=== PATIENT | male | born 1970 | race Caucasian/White ===

== ENCOUNTER 2016-04-07 09:03 | Emergency (ER) ==
[2016-04-07] MEDS ORDERED: LIDOCAINE 1 % AMP 5 ML (SUTURES) SQ STA (09:07)
--- NOTE | 2016-04-07 09:10 | ED.PDOC ---
General ED Provider: Dr. CARMEN PAULA Chief Complaint: Abscess Stated Complaint: had a cyst for 10 months. Them over the last 2 -3 day area on the right lower quadrant started swelling and is very painful Time Seen by Physician: 09:30 Information Source: Patient Primary Care Provider: KHARI BUCHANAN Nursing and Triage Documentation Reviewed and Agree: Yes Skin Complaint Exam - Skin/Soft Tissue Complaint/Exam Onset/Duration: 2 days Symptoms Are: Still present Timing: Constant Initial Severity: Moderate Current Severity: Severe Location: Right lower quadrant Character: Reports: Redness, Swelling, Raised, Painful Aggravating: Reports: Touch Alleviating: Reports: None Associated Signs and Symptoms: Reports: Tenderness, Red streaks. Denies: Fever , Chills, Itching, Drainage, Bruising, Joint swelling Recent Exposure to Others w/Similar Symptoms: No Skin Findings: Present: Induration, Fluctuant mass, Skin lesion Joint Tenderness Present: No Differential Diagnoses: Abscess, Cellulitis, Lymphangitis Review of Systems - Review Of Systems Constitutional: Reports: No symptoms Eyes: Reports: No symptoms Ears, Nose, Mouth, Throat: Reports: No symptoms Respiratory: Reports: No symptoms Cardiac: Reports: No symptoms GI: Reports: No symptoms : Reports: No symptoms Musculoskeletal: Reports: No symptoms Skin: Reports: Lesions (right lower quadrant ) Neurological: Reports: No symptoms Endocrine: Reports: No symptoms Hematologic/Lymphatic: Reports: No symptoms All Other Systems: Reviewed and Negative Past Medical History - Past Medical History Endocrine: Reports: Dyslipidemia Cardiovascular: Reports: None Respiratory: Reports: None Hematological: Reports: None Gastrointestinal: Reports: PUD Genitourinary: Reports: Kidney stones Neuro/Psych: Reports: Migraine, Anxiety, Depression Musculoskeletal: Reports: None Cancer: Reports: None Other Pertinent Past Medical History: DIVERTICULITIS, Abdominal pain. - Surgical History General Surgical History: Reports: Cholecystectomy, Tonsillectomy - Family History Family History: Reports: Unknown - Social History Smoking Status: Current every day smoker Hx Substance Use: No Alcohol Screening: Occasionally Physical Exam - Physical Exam Appearance: Ill-appearing, No pain distress, Well-nourished Pain Distress: Moderate Respiratory: Airway patent, Breath sounds clear, Breath sounds equal, Respirations nonlabored Cardiovascular: RRR, Pulses normal, No rub, No murmur GI/: Soft, No masses, Bowel sounds normal, No Organomegaly, Tender (in area of absecess ) Musculoskeletal: Normal strength, ROM intact, No edema, No calf tenderness Skin: Warm, Dry Neurological: Sensation intact, Motor intact, Cranial nerves intact, Alert, Oriented Psychiatric: Affect appropriate, Mood appropriate Procedures - Incision and Drainage Site: right lower quadrant Instrument Used: 11 Blade I & D Procedure: Yes: Betadine Prep Lidocaine Used: Yes Type of Drainage: Present: Pus, Blood Irrigated: No Progress: Tolerated well. Critical Care Note - Critical Care Note Total Time (mins): 0 Course - Course Orders, Labs, Meds: Orders Category Date Time Status CULTURE WOUND [WOUND CULTURE] Stat LAB 04/07/16 09:40 Received Lidocaine HCl/Pf [Lidocaine 1 % Amp 5 ml (Sutures)] MEDS 04/07/16 09:07 Discontinued 5 ml SQ ONCE STA Sulfamethoxazole/Trimethoprim [Bactrim Ds 800/160 mg] MEDS 04/07/16 09:42 Discontinued 1 tab PO ONCE STA Medications Discontinued Medications Generic Name Dose Route Start Last Admin Trade Name Freq PRN Reason Stop Dose Admin Lidocaine HCl 5 ml 04/07/16 09:07 04/07/16 09:46 Lidocaine 1 % Amp 5 Ml (Sutures) SQ 04/07/16 09:08 5 ml ONCE STA Administration Trimethoprim/Sulfamethoxazole 1 tab 04/07/16 09:42 04/07/16 09:45 Bactrim Ds 800/160 Mg PO 04/07/16 09:43 1 tab ONCE STA Administration Vital Signs: Temp Pulse Resp BP Pulse Ox 04/07/16 09:07 98.3 F 94 H 20 135/86 95 Departure - Departure Time of Disposition: 09:43 Disposition: HOME SELF-CARE Discharge Problem: Abscess Instructions: Abscess (ED) Condition: Good Pt referred to PMD for follow-up: Yes Additional Instructions: use warm compress to the area twice a day. keep it clean take antibiotics as prescribed take Motrin as needed fro pain Prescriptions: Ibuprofen [Motrin] 600 mg PO Q6H PRN #30 tablet PRN Reason: Analgesia Sulfamethoxazole/Trimethoprim [Bactrim Ds Tablet] 1 each PO BID #20 tablet Allergies/Adverse Reactions: Allergies No Known Allergies Allergy (Verified 04/07/16 09:13) Home Medications: Ambulatory Orders Ibuprofen [Motrin] 600 mg PO Q6H PRN #30 tablet 04/07/16 Sulfamethoxazole/Trimethoprim [Bactrim Ds Tablet] 1 each PO BID #20 tablet 04/07 Disposition Discussed With: Patient
[2016-04-07 09:12] VITALS: BP 135/86; TEMP 98.3; BMI 29.7
[2016-04-07] MEDS ORDERED: BACTRIM DS 800/160 MG PO STA (09:42)
== END 2016-04-07 09:52 | disposition home or self-care (01) ==
LOC: ED 09:03
DX: L02.211 Cutaneous abscess of abdominal wall (principal); F17.210 Nicotine dependence, cigarettes, uncomplicated
CPT/HCPCS: 87070; 99282; 99283

== ENCOUNTER 2016-11-02 14:16 | Outpatient (CLI) ==
[2016-11-02 14:55] LABS: BASOPHILS # (AUTO) 0.1 K/uL (0-0.2); BASOPHILS % (AUTO) 0.7 % (0.0-3.0); EOSINOPHILS # (AUTO) 0.1 K/ul (0.0-0.7); EOSINOPHILS % (AUTO) 1.4 % (0.0-7.0); IMMATURE GRANULOCYTE % (AUTO) 0.5 % (0.0-5.0); LYMPHOCYTES # (AUTO) 3.3 K/uL (0.60-3.4); LYMPHOCYTES % (AUTO) 37.1 (10.0-50.0); MEAN CORPUSCULAR HEMOGLOBIN 31.9 pg (27.0-31.0); MEAN CORPUSCULAR HGB CONC 35.4 (31.8-35.4); MEAN CORPUSCULAR VOLUME 90.1 fl (80.0-94.0); MONOCYTES # (AUTO) 0.9 K/uL (0.4-2.0); MONOCYTES % (AUTO) 10.2 (0-10); NEUTROPHILS # (AUTO) 4.4 K/ul (2.0-6.9); NEUTROPHILS % (AUTO) 50.1; PLATELET COUNT 339 10^3/uL (140-440); RED BLOOD COUNT 5.33 10^6/ul (4.70-6.10); WHITE BLOOD COUNT 8.76 K/ul (4.2-10.2)
[2016-11-02 15:43] LABS: ALBUMIN 4.2 g/dL (3.4-5.0); ALBUMIN/GLOBULIN RATIO 1.05; BILIRUBIN,TOTAL 4.72 mg/dL (0.00-1.20); BUN/CREATININE RATIO 9.89; CALCIUM 10.2 mg/dL (8.2-10.2); CREATININE 0.91 mg/dL (0.60-1.10); POTASSIUM 3.8 mmol/L (3.5-5.1); TOTAL PROTEIN 8.2 g/dL (6.4-8.2)
[2016-11-02 16:36] LABS: ANION GAP 18.8
== END 2016-11-02 14:17 | disposition home or self-care (01) ==
LOC: LAB 14:16
PROVIDERS: ATTEND Nurse Practitioner Family
DX: F41.8 Other specified anxiety disorders (principal); G25.0 Essential tremor; E78.5 Hyperlipidemia, unspecified; Z79.899 Other long term (current) drug therapy
CPT/HCPCS: 36415; 80053; 80061; 82542; 84443; 85025

== ENCOUNTER 2017-10-12 16:52 | Outpatient (CLI) | payer OTHER ==
[2017-10-12] MEDS ORDERED: FLOMAX ONE (17:28)
[2017-10-12] MEDS ORDERED: TORADOL ONE (17:29)
[2017-10-12] MEDS ORDERED: TORADOL IM STA (17:30)
[2017-10-12] MEDS ORDERED: FLOMAX PO STA (17:30)
--- NOTE | 2017-10-12 17:30 | CT ---
EXAM: CT scan of the abdomen and pelvis without contrast HISTORY: Left flank pain, history of kidney stones TECHNIQUE: Helical imaging of the abdomen pelvis was performed without contrast. 3 mm thin axial im ages and coronal and sagittal reconstructions were provided for interpretation. FINDINGS: The patient has had previous cholecystectomy. The pancreas, adrenal glands and kidneys ap pear normal. The proximal ureters are normal size. The small and large bowel loops are normal calib er. There is no free air. Diverticula are seen within the descending colon and sigmoid colon withou t acute inflammation. The appendix appears normal. No retroperitoneal abnormalities are seen. The helical images obtained through the pelvis demonstrate a normal appearance of the rectum, urinary bladder. There is no free fluid seen within the pelvis. Lung bases are clear. No lytic or blastic lesions are seen within the osseous structures. IMPRESSION: There is no ureteral obstruction. There is no bowel obstruction or acute inflammatory change seen within the abdomen and pelvis. Diverticular disease of the descending colon and sigmoid colon without acute inflammation.
== END 2017-10-12 16:53 | disposition home or self-care (01) ==
LOC: RAD 16:52 → OPMED 16:53
PROVIDERS: ATTEND Internal Medicine Geriatric Medicine
DX: N20.0 Calculus of kidney (principal); R10.9 Unspecified abdominal pain
CPT/HCPCS: 74176; 96372

== ENCOUNTER 2018-03-04 21:08 | Emergency (ER) | payer OTHER ==
[2018-03-04 21:18] VITALS: BP 145/90; TEMP 98.7; BMI 28.0
--- NOTE | 2018-03-04 21:25 | ED.PDOC ---
General ED Provider: Dr. BERYL VILLEGAS-ER Chief Complaint: Respiratory Complaint Stated Complaint: my sinuses are draining and i am coughing Time Seen by Physician: 21:10 Mode of Arrival: Walk-In Information Source: Patient Exam Limitations: No limitations Primary Care Provider: CAROLYNN CELIS Nursing and Triage Documentation Reviewed and Agree: Yes Does patient meet sepsis criteria?: No System Inflammatory Response Syndrome: Not Applicable Sepsis Protocol: For patient's 13 years and over: Temp is 96.8 and below OR 101 and greater Pulse >90 BPM Resp >20/minute Acutely Altered Mental Status Are patient's symptoms suggestive of a new infection, such as: -Pneumonia -Skin, Soft Tissue -Endocarditis -UTI -Bone, Joint Infection -Implantable Device -Acute Abdominal Infection -Wound Infection -Meningitis -Blood Stream Catheter Infection -Unknown Respiratory Complaint Exam - Respiratory Complaint/Exam Onset/Duration: 2 days Symptoms Are: Still present Timing: Intermittent Initial Severity: Mild Current Severity: Moderate Location: Nose, Chest Character: Reports: Productive cough Aggravating: Reports: URI Alleviating: Reports: Spontaneous resolution Associated Signs and Symptoms: Reports: URI, Nasal congestion, Sinus discomfort History of Healthcare-Acquired Pneumonia: No Home Oxygen Use: No Recent Stress Test: No Recent Echo/LV Function: No Current Antibiotic Use: No Current Asthma Medication Use: No Respiratory Distress: None Inadequate Respiratory Effort: No Dysphagia Present: No Stridor Present: No JVD Present: No Accessory Muscle Use: No Retractions: Not Present Diminished Breath Sounds: No Sinus Tenderness: Maxillary Grunting Respirations: No Kussmaul Respirations: No Differential Diagnoses: Sinusitis, URI Review of Systems - Review Of Systems Constitutional: Reports: No symptoms Eyes: Reports: No symptoms Ears, Nose, Mouth, Throat: Reports: Nose discharge Respiratory: Reports: Cough Cardiac: Reports: No symptoms GI: Reports: No symptoms : Reports: No symptoms Musculoskeletal: Reports: No symptoms Skin: Reports: No symptoms Neurological: Reports: No symptoms Endocrine: Reports: No symptoms Hematologic/Lymphatic: Reports: No symptoms All Other Systems: Reviewed and Negative Past Medical History - Past Medical History Previously Healthy: No Endocrine: Reports: Dyslipidemia Cardiovascular: Reports: None Respiratory: Reports: None Hematological: Reports: None Gastrointestinal: Reports: PUD Genitourinary: Reports: Kidney stones Neuro/Psych: Reports: Migraine, Anxiety, Depression Musculoskeletal: Reports: None Cancer: Reports: None Other Pertinent Past Medical History: DIVERTICULITIS, Abdominal pain. - Surgical History General Surgical History: Reports: Cholecystectomy, Tonsillectomy - Family History Family History: Reports: Unknown - Social History Smoking Status: Current every day smoker, Heavy tobacco smoker Hx Substance Use: No Alcohol Screening: Occasionally - Immunizations Tetanus Shot up to Date: Yes Physical Exam - Physical Exam Appearance: Well-appearing, No pain distress, Well-nourished Eyes: JENS, EOMI, Conjunctiva clear ENT: Rhinorrhea Neck: Supple Respiratory: Rhonchi Cardiovascular: RRR, Pulses normal, No rub, No murmur GI/: Soft, Nontender, No masses, Bowel sounds normal, No Organomegaly Musculoskeletal: Normal strength, ROM intact, No edema, No calf tenderness Skin: Warm, Dry, Normal color Neurological: Sensation intact, Motor intact, Reflexes intact, Cranial nerves intact, Alert, Oriented Psychiatric: Affect appropriate Critical Care Note - Critical Care Note Total Time (mins): 0 Course - Course Orders, Labs, Meds: Orders Category Date Time Status FLU A/B MOLECULAR Stat LAB 03/04/18 21:21 Ordered Vital Signs: Temp Pulse Resp BP Pulse Ox 03/04/18 21:09 98.7 F 90 20 145/90 H 93 L Departure - Departure Time of Disposition: 21:25 Disposition: HOME SELF-CARE Discharge Problem: Bronchitis Sinusitis Qualifiers: Sinusitis location: other Chronicity: acute Recurrence: non-recurrent Qualified Code(s): J01.80 - Other acute sinusitis Instructions: Sinusitis (ED) Condition: Good Pt referred to PMD for follow-up: Yes IPMP verified?: No Additional Instructions: augmentin 875mg bid x 10 days , medrol dose pack, mucinex 600mg q 12hrs #30-0-- robitussin ac 1 tsp q 6hrs prn cough 125cc---redheck in 72 hrs if not better Allergies/Adverse Reactions: Allergies No Known Allergies Allergy (Unverified 11/02/16 13:13) Home Medications: Ambulatory Orders 1 [No Reported Medications] 03/04/18 Disposition Discussed With: Patient
== END 2018-03-04 21:50 | disposition home or self-care (01) ==
LOC: ED 21:08
DX: J40 Bronchitis, not specified as acute or chronic (principal); J01.80 Other acute sinusitis; F17.210 Nicotine dependence, cigarettes, uncomplicated
CPT/HCPCS: 87502; 99283

== ENCOUNTER 2018-04-01 20:05 | Inpatient (IN) | payer OTHER ==
[2018-04-01] MEDS ORDERED: DUONEB NEB STA (20:16)
--- NOTE | 2018-04-01 20:24 | ED.PDOC ---
General ED Provider: Dr. CARMEN PAULA Chief Complaint: Shortness of Air Stated Complaint: Patient is a 47 year old male who comes to the ER with shortness of breath that started when he woke up this eveing. He states that he has been sick off and on all month and took some Amoxicillin which he completed. Time Seen by Physician: 20:15 Mode of Arrival: Walk-In Information Source: Patient Exam Limitations: No limitations Primary Care Provider: CAROLYNN CELIS Nursing and Triage Documentation Reviewed and Agree: Yes Does patient meet sepsis criteria?: No System Inflammatory Response Syndrome: Not Applicable Sepsis Protocol: For patient's 13 years and over: Temp is 96.8 and below OR 101 and greater Pulse >90 BPM Resp >20/minute Acutely Altered Mental Status Are patient's symptoms suggestive of a new infection, such as: -Pneumonia -Skin, Soft Tissue -Endocarditis -UTI -Bone, Joint Infection -Implantable Device -Acute Abdominal Infection -Wound Infection -Meningitis -Blood Stream Catheter Infection -Unknown Respiratory Complaint Exam - Shortness of Air Complaint/Exam Onset/Duration: 1 hour ago Symptoms Are: Still present Timing: Constant Initial Severity: Severe Current Severity: Severe Character: Reports: Dyspnea at rest Aggravating: Reports: Movement Review of Systems - Review Of Systems Constitutional: Reports: No symptoms Eyes: Reports: No symptoms Ears, Nose, Mouth, Throat: Reports: No symptoms Respiratory: Reports: Cough, Short of air Cardiac: Reports: Chest pain GI: Reports: No symptoms : Reports: No symptoms Musculoskeletal: Reports: No symptoms Skin: Reports: No symptoms Neurological: Reports: Anxiety Endocrine: Reports: No symptoms Hematologic/Lymphatic: Reports: No symptoms All Other Systems: Reviewed and Negative Past Medical History - Past Medical History Previously Healthy: No Endocrine: Reports: Dyslipidemia Cardiovascular: Reports: None Respiratory: Reports: Bronchitis Hematological: Reports: None Gastrointestinal: Reports: PUD, Diverticulitis Genitourinary: Reports: Kidney stones Neuro/Psych: Reports: Migraine, Anxiety, Depression Musculoskeletal: Reports: None Cancer: Reports: None Other Pertinent Past Medical History: Abdominal pain. - Surgical History General Surgical History: Reports: Cholecystectomy, Tonsillectomy - Family History Family History: Reports: Unknown - Social History Smoking Status: Current every day smoker Hx Substance Use: No Alcohol Screening: Occasionally - Immunizations Tetanus Shot up to Date: No Physical Exam - Physical Exam Appearance: Ill-appearing Ill-appearing: Severe Pain Distress: Mild Neck: Supple Respiratory: Breath sounds diminished Cardiovascular: RRR, Pulses normal, No rub, No murmur Musculoskeletal: Normal strength, ROM intact, No edema, No calf tenderness Skin: Warm Neurological: Alert, Oriented Psychiatric: Anxious Interpretation - Radiology Interpretation Radiology Interpretation By: Radiologist Radiology Results: Negative Exam Interpreted: CT Scan (chest ) - EKG Interpretation Time of EKG #1: 20:15 Rate: Tachy Rhythm: Sinus Ectopy: None [place]: [place] ST Segment: Normal Interpretation: possibel atrial enlargement Physician Notification - Case Discussed Physician Notified: Dr Hubbard Time of Notification: 21:43 (Get a CT chest without contrust. ) Physician Notified: Dr Hubbard Time of Notification: 22:53 (ok to admit place on Antibiotics and oxygen ) Critical Care Note - Critical Care Note Total Time (mins): 40 Course - Course Hematology/Chemistry: 04/01/18 20:37 04/01/18 20:37 Orders, Labs, Meds: Lab Review 04/01/18 04/01/18 04/01/18 20:16 20:24 20:37 WBC 18.52 H RBC 5.14 Hgb 15.8 Hct 45.4 MCV 88.3 MCH 30.7 MCHC 34.8 RDW Coeff of Shahid 12.4 Plt Count 334 Immature Gran % (Auto) 0.4 Neut % (Auto) 78.9 Lymph % (Auto) 14.2 [place] % (Auto) 5.6 Eos % (Auto) 0.6 Baso % (Auto) 0.3 Immature Gran # (Auto) 0.1 Neut # (Auto) 14.6 H Lymph # (Auto) 2.6 [place] # (Auto) 1.0 Eos # (Auto) 0.1 Baso # (Auto) 0.1 D-Dimer (Manual) Puncture Site Rb O2 Saturation 92.0 L ABG pH 7.446 ABG pCO2 34.2 L ABG pO2 60.0 L ABG HCO3 23.6 ABG Total CO2 25 ABG Base Excess -1 Rufino Test + FiO2 % 21.0 Sodium Potassium Chloride Carbon Dioxide Anion Gap BUN Creatinine Estimated GFR (MDRD) BUN/Creatinine Ratio Glucose Lactic Acid Calcium Total Bilirubin AST ALT Alkaline Phosphatase Total Creatine Kinase Troponin I Total Protein Albumin Globulin Albumin/Globulin Ratio Procalcitonin Influ A Molecular Assay Negative by naat Influ B Molecular Assay Negative by naat 04/01/18 04/01/18 04/01/18 20:37 20:37 20:37 WBC RBC Hgb Hct MCV MCH MCHC RDW Coeff of Shahid Plt Count Immature Gran % (Auto) Neut % (Auto) Lymph % (Auto) [place] % (Auto) Eos % (Auto) Baso % (Auto) Immature Gran # (Auto) Neut # (Auto) Lymph # (Auto) [place] # (Auto) Eos # (Auto) Baso # (Auto) D-Dimer (Manual) 248.78 Puncture Site O2 Saturation ABG pH ABG pCO2 ABG pO2 ABG HCO3 ABG Total CO2 ABG Base Excess Rufino Test FiO2 % Sodium 139.3 Potassium 4.05 Chloride 100.9 Carbon Dioxide 25.3 Anion Gap 17.15 BUN 6.2 L Creatinine 0.62 Estimated GFR (MDRD) 140.00 BUN/Creatinine Ratio 10.00 Glucose 91.4 Lactic Acid Calcium 9.53 Total Bilirubin 0.97 AST 19.4 ALT 22.2 Alkaline Phosphatase 89.6 Total Creatine Kinase 90.5 Troponin I < 0.012 Total Protein 7.80 Albumin 4.44 Globulin 3.36 Albumin/Globulin Ratio 1.32 Procalcitonin < 0.05 Influ A Molecular Assay Influ B Molecular Assay 04/01/18 20:37 WBC RBC Hgb Hct MCV MCH MCHC RDW Coeff of Shahid Plt Count Immature Gran % (Auto) Neut % (Auto) Lymph % (Auto) [place] % (Auto) Eos % (Auto) Baso % (Auto) Immature Gran # (Auto) Neut # (Auto) Lymph # (Auto) [place] # (Auto) Eos # (Auto) Baso # (Auto) D-Dimer (Manual) Puncture Site O2 Saturation ABG pH ABG pCO2 ABG pO2 ABG HCO3 ABG Total CO2 ABG Base Excess Rufino Test FiO2 % Sodium Potassium Chloride Carbon Dioxide Anion Gap BUN Creatinine Estimated GFR (MDRD) BUN/Creatinine Ratio Glucose Lactic Acid 1.97 Calcium Total Bilirubin AST ALT Alkaline Phosphatase Total Creatine Kinase Troponin I Total Protein Albumin Globulin Albumin/Globulin Ratio Procalcitonin Influ A Molecular Assay Influ B Molecular Assay Orders Category Date Time Status ABG DRAW REQUEST Routine CARDIO 04/01/18 20:16 Completed EKG-(ED ONLY) Stat CARDIO 04/01/18 20:10 Completed NEBULIZER TREATMENT Stat CARDIO 04/01/18 20:17 Completed ED IV/MEDIPORT/POWERPORT .ONCE EMERGENCY 04/01/18 20:10 Active ABG Stat LAB 04/01/18 20:16 Completed BLOOD CULTURE (ED ONLY) Stat LAB 04/01/18 20:37 Received BLOOD CULTURE (ED ONLY) Stat LAB 04/01/18 22:15 Received CBC W/ AUTO DIFF Stat LAB 04/01/18 20:37 Completed COMPREHENSIVE METABOLIC PANEL Stat LAB 04/01/18 20:37 Completed CREATINE KINASE Stat LAB 04/01/18 20:37 Completed D-DIMER Stat LAB 04/01/18 20:37 Completed FLU A/B MOLECULAR Stat LAB 04/01/18 20:24 Completed LACTIC ACID Stat LAB 04/01/18 20:37 Completed MOLECULAR GROUP A STREP Stat LAB 04/01/18 20:24 Completed PROCALCITONIN Stat LAB 04/01/18 20:37 Completed TROPONIN I Stat LAB 04/01/18 20:37 Completed 0.9 % Sodium Chloride [Saline Flush] MEDS 04/01/18 20:10 Ordered 1 syr IVF PRN PRN Ipratropium/Albuterol Neb [Duoneb] MEDS 04/01/18 20:16 Discontinued 1 vial NEB ONCE STA Levofloxacin/D5w [Levaquin] 100 ml MEDS 04/01/18 21:50 Discontinued IV .STK-MED Levofloxacin/D5w [Levaquin] 500 mg MEDS 04/01/18 21:26 Discontinued Premix 100 ml D5w 1 bag IV ONCE Methylprednisolone Sod Succ/Pf [Solu-Medrol 125 mg] MEDS 04/01/18 20:35 Discontinued 125 mg IVP ONCE STA CHEST, 1V AP ONLY Stat RADS 04/01/18 20:[address] CHEST W/O CONTRAST Stat RADS 04/01/18 21:42 Completed Medications Generic Name Dose Route Start Last Admin Trade Name Freq PRN Reason Stop Dose Admin Acetaminophen 650 mg 04/01/18 22:56 Tylenol PO Q4H PRN Fever > 102 Albuterol/Ipratropium 1 vial 04/02/18 06:00 Duoneb NEB RTQID ASHLEY Albuterol/Ipratropium 1 vial 04/01/18 22:56 Duoneb NEB RTQ2H PRN Wheezing Enoxaparin Sodium 40 mg 04/02/18 09:00 Lovenox SUBCUT DAILY ASHLEY Levofloxacin/Dextrose 500 mg/ 100 mls @ 100 mls/hr 04/02/18 19:00 Dextrose IV 04/05/18 18:59 DAILY ASHLEY Methylprednisolone Sodium Succinate 125 mg 04/02/18 05:00 Solu-Medrol 125 Mg IVP Q8HR ASHLEY Ondansetron HCl 4 mg 04/01/18 22:56 Zofran 4 Mg/2 Ml IVP Q6H PRN Nausea / Vomiting Sodium Chloride 1 syr 04/01/18 20:10 04/01/18 20:39 Saline Flush IVF 1 syr PRN PRN Administration To flush IV Discontinued Medications Generic Name Dose Route Start Last Admin Trade Name Freq PRN Reason Stop Dose Admin Albuterol/Ipratropium 1 vial 04/01/18 20:16 04/01/18 20:35 Duoneb NEB 04/01/18 20:17 1 vial ONCE STA Administration Levofloxacin/Dextrose 500 mg/ 100 mls @ 100 mls/hr 04/01/18 21:26 04/01/18 21 :58 Dextrose IV 04/01/18 22:25 100 mls/hr ONCE STA Administration Methylprednisolone Sodium Succinate 125 mg 04/01/18 20:35 04/01/18 20:38 Solu-Medrol 125 Mg IVP 04/01/18 20:36 125 mg ONCE STA Administration Vital Signs: Temp Pulse Resp BP Pulse Ox 04/01/18 20:05 99.4 F 95 H 24 144/96 H 94 L Departure - Departure Time of Disposition: 23:25 Disposition: ADMITTED INPATIENT Discharge Problem: Bronchitis, Hypoxemia Condition: Fair Pt referred to PMD for follow-up: Yes IPMP verified?: No Allergies/Adverse Reactions: Allergies No Known Allergies Allergy (Unverified 04/01/18 20:09) Home Medications: Ambulatory Orders 1 [No Reported Medications] 03/04/18 Disposition Discussed With: Patient
[2018-04-01] MEDS ORDERED: SOLU-MEDROL 125 MG IVP STA (20:35)
[2018-04-01] MEDS ORDERED: LEVAQUIN 500 MG in PREMIX 100 ML D5W 1 BAG IV STA (21:26)
[2018-04-01] MEDS ORDERED: LEVAQUIN 100 ML IV ONE (21:50)
--- NOTE | 2018-04-01 22:43 | DI ---
EXAM: Portable chest HISTORY: Shortness of breath COMPARISON: Two-view chest 07/28/2014 FINDINGS: The cardiomediastinal silhouette is stable. They are benign granulomatous changes without evidence of active pulmonary disease. IMPRESSION: Benign granulomatous changes without evidence of active pulmonary disease or interval change
--- NOTE | 2018-04-01 22:47 | CT ---
EXAM: CT scan thorax without contrast HISTORY: Hypoxia COMPARISON: CT scan thorax 04/04/2010 FINDINGS: Contiguous axial images obtained through the thorax without contrast utilizing 5-mm collim ation. Sagittal and coronal reconstructions were imaged and reviewed. The thoracic inlet is unremar kable. There are subcentimeter mediastinal lymph nodes. Calcified lymph nodes are seen in the left hilum. The heart is normal in size with pericardial effusion.. There is minimal dependent atelectas is at both posterior gutter regions. There has been prior cholecystectomy.. Bone windows reveals no evidence of lytic or blastic lesions. IMPRESSION: Minimal dependent atelectasis in both posterior gutter regions. No evidence of infiltrate or effusion status post cholecystectomy
[2018-04-01] MEDS ORDERED: ZOFRAN 4 MG/2 ML IVP PRN (22:56)
[2018-04-01] MEDS ORDERED: TYLENOL PO PRN (22:56)
[2018-04-02 00:35] VITALS: BMI 27.2
[2018-04-02] MEDS: DUONEB NEB PRN ×2 (01:13→04:30)
[2018-04-02] MEDS: DUONEB NEB SCH ×5 (04:30→23:46)
[2018-04-02] MEDS: SOLU-MEDROL 125 MG IVP SCH ×3 (05:49→20:43)
[2018-04-02] MEDS: LOVENOX SUBCUT SCH (09:09)
[2018-04-02] MEDS: NICODERM 21 MG TD SCH (12:09)
[2018-04-02] MEDS: LEVAQUIN 500 MG in PREMIX 100 ML D5W 1 BAG IV SCH ×2 (20:43→20:44)
[2018-04-02] MEDS ORDERED: CARDIZEM PO SCH (23:00)
[2018-04-02] MEDS: FLOVENT HFA 220 MCG IH SCH (23:23)
[2018-04-03] MEDS: DUONEB NEB SCH ×5 (04:46→20:58)
[2018-04-03] MEDS: SOLU-MEDROL 125 MG IVP SCH ×3 (04:50→20:44)
[2018-04-03] MEDS: NICODERM 21 MG TD SCH (08:16)
[2018-04-03] MEDS: LOVENOX SUBCUT SCH (08:17)
[2018-04-03] MEDS: FLOVENT HFA 220 MCG IH SCH ×2 (08:18→20:49)
[2018-04-03] MEDS: CARDIZEM PO SCH ×2 (08:21→20:44)
[2018-04-03] MEDS: LEVAQUIN 500 MG in PREMIX 100 ML D5W 1 BAG IV SCH (20:44)
[2018-04-04] MEDS: DUONEB NEB SCH ×3 (04:25→14:06)
[2018-04-04] MEDS: SOLU-MEDROL 125 MG IVP SCH ×2 (05:11→14:19)
[2018-04-04] MEDS: CARDIZEM PO SCH (09:42)
[2018-04-04] MEDS: NICODERM 21 MG TD SCH (09:42)
[2018-04-04] MEDS: FLOVENT HFA 220 MCG IH SCH (09:49)
[2018-04-04] MEDS: LOVENOX SUBCUT SCH (10:09)
--- NOTE | 2018-04-04 10:53 | PN ---
DATE OF SERVICE: 04/03/18 SUBJECTIVE: The patient is alert and feeling much better. His lungs now are clear. He was wheezing all over yesterday both anteriorly and posteriorly. The patient had not smoked today. He did go out and smoke yesterday. I had a good discussion with him with regards to that. I told him that at 47 years of age it would be urena for him to stop smoking now. It doesn't make any difference if he is going to smoke 2,3 or 4 cigarette per day compared to a pack. It would still produce the irritation. If patient's continues to improve by tomorrow, 04/04/18 that he probably would be discharged. No vital signs can be recorded since the computer is out of order. RACHAELD
--- NOTE | 2018-04-04 13:30 | HP ---
DATE OF SERVICE: 04/01/18 CHIEF COMPLAINT: Shortness of breath. SOURCE OF HISTORY: The patient plus emergency room notes and review of records. HISTORY OF PRESENT ILLNESS: The patient went to sleep and woke up very short of breath with chest tightness. He subsequently presented himself to the emergency room an hour after the incident. The patient's arterial blood gases in the emergency room showed severe hypoxemia, ER M.D. noted. On physical examination diminished breath sounds only. I did examine this patient in the emergency room and he was having inspiratory and expiratory wheeze, both anteriorly and posteriorly. Chest x-ray was negative for any acute active pulmonary disease and CT chest was done subsequent to the chest x-ray and did show minimal dependent atelectasis on both posterior gutter regions. No evidence of infiltrate or effusion. Status post cholecystectomy. Labs showed moderate leukocytosis 18,520 , neutrophils 14.6, CMP unremarkable. The CK is normal as well as troponin. The procalcitonin is less than 0.05. The patient received nebulizer treatment 04/01/18 at 2017. Blood tests also were done about that time. The patient was subsequently admitted because of persistent problems. Influenza A and B were negative by nuclear ampflication. In the emergency room 03/04/18 complaining of cough times four days duration with purulent sputum greenish yellow, sensation of tightness in the chest, can' t get enough air. The patient was given a diagnosis of bronchitis. It was noted that the patient had some rales in the course of examination and was prescribed Augmentin 875 mg twice a day for one week. Medrol Dosepak, Mucinex 600 mg twice a day and Robutissin AC, a teaspoon every 6 hours p.r.n. It seems like the problem has not resolved. The patient's other previous problems consisted of sleep apnea, history of diverticulitis, history of PTSD, migraine headaches, anxiety/depression, GERD, dyslipidemia and kidney stone, T & A and cholecystectomy. FAMILY HISTORY: No significant maternal hereditary disease. Paternal side did have a history of sarcoidosis in some relatives. Father had cancer. SOCIAL HISTORY: The patient is and has four children. Two are with his ex- and two are with him. The oldest is 18 years of age. The patient smokes and smokes more than one pack of cigarettes a day. Occasional alcohol. MEDICATIONS: (Prior to this admission) None -- this patient had been taking [id number] medications. Over-the- counter medications did not help. ALLERGIES: NKDA REVIEW OF SYSTEMS: CONSTITUTIONAL: The patient had no fever, no chills. He did have some fatigue. RADIOLOGY ADMINISTRATOR: Headache but not severe. No ataxia. No syncopal episode and no seizure event. VISUAL: Negative. AUDITORY: Negative. RESPIRATORY: The patient has significant shortness of breath. He woke up unable to get a good breath and sensation of tightness. Denies any oppressive chest pain. Cough is more or less nonproductive and no hemoptysis. CARDIOVASCULAR: The patient has sensation of tightness in the chest but it seemed to be described as not able to take enough air or breath. It is not oppressive or squishing type sensation. No diaphoresis. GASTROINTESTINAL: Denies any problems with nausea, anorexia, abdominal pain or dysphagia. GENITOURINARY: Denies any pain on urination as well as frequency or urgency. MUSCULOSKELETAL: Negative. INTEGUMENT: Negative. ENDOCRINE: The patient denies any polyuria or polydipsia. HEMATOLOGIC: Denies any prolonged bleeding or spontaneous bleeding. PSYCHIATRIC: Affect appears to be down. The patient has history of anxiety/ depression as well as PTSD. 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 He is admitted to the hospital because of severe dyspnea with moderate hypoxemia. The patient had expiratory wheezing plus inspiratory both anteriorly and posteriorly. VITAL SIGNS: On presentation to the emergency room consisted of temperature 99.4 , AL 95, blood pressure 145/96, respiratory rate 24, oxygen saturation 94 but not indicated whether it is room air or 2 or 3L of oxygen. He is 5'7", 175 lbs. HEAD: Unremarkable. Scalp: No active dermatitis. Face is symmetrical and equal with no facial weakness. He denies any tenderness in the frontal maxillary sinus areas to palpation and/or pressure. EYES: Pupils equal/reactive to light about 3 mm in size and round. Palpebral conjunctivae not pale. Sclerae not icteric. MOUTH: Unremarkable. THROAT: No inflammation, tumors or exudate. NECK: No masses. No bruit. No tenderness. No rigidity. CHEST: Essentially symmetrical and equal with good expansion. Breath sounds are diminished with expiratory and inspiratory wheezing posteriorly as well as anteriorly. HEART: Audible and slightly rapid. No murmurs. ABDOMEN: Soft with no remarkable tenderness. No guarding. Bowel sounds are active. No masses palpable. EXTERNAL GENITALIA: Not examined. RECTAL: Not done. LOWER EXTREMITIES: Essentially symmetrical and equal with no significant edema. Anterior tibials are present. IMPRESSION/DIAGNOSIS: 1. Chronic bronchitis with a gut exacerbation. 2. Chronic tobacco use and abuse, persistent. 3. Moderate to severe hypoxemia secondary to #1. 4. History of sleep apnea. 5. History of PTSD. 6. History of anxiety/depression. 7. History of GERD. 8. History of diverticulitis. 9. History of lipid elevation. 10. History of renal stone. PLAN: 1. Hydration. 2. Steroid injection intravenously. 3. Antibiotics were initiated in the emergency room and will continue for the meantime. 4. Note: This patient had Flovent prescribed 220 mcg two puffs twice a day. 5. Oxygen was initiated in the emergency room and will continue in the hospital. TIME SPENT: GREATER THAN 65 MINUTES MTDD
[2018-04-04 14:57] VITALS: BP 120/72; TEMP 97.7
--- NOTE | 2018-04-07 09:58 | CONS ---
DATE OF SERVICE: 04/03/18 CONSULT FOLLOWUP SUBJECTIVE: The patient was seen for evaluation of pain from the chest with cough and congestion. The patient had symptoms of bronchitis was pleuritic type of pain. So far the patient's cardiac markers and EKG are unchanged with sinus rhythm with no acute changes. Telemetry has no ST-T wave change noted. Today he had an echo done which showed normal LV contractility, borderline RV size but LV size, normal LV contractility. REVIEW OF SYSTEMS: CONSTITUTIONAL: No night sweats. No fatigue, malaise, lethargy. No fever or chills. HEENT: Eyes: No visual changes. No eye pain. No eye discharge. ENT: No runny nose. No epistaxis. No sinus pain. No sore throat. No odynophagia. No ear pain. No congestion. RESPIRATORY: No cough, no congestion. No hemoptysis. CARDIOVASCULAR: No angina symptoms. No CHF symptoms. No atypical chest pain for CAD. No palpitations. No shortness of breath. GASTROINTESTINAL: No abdominal pain. No nausea or vomiting. No diarrhea or constipation. No hematemesis. No hematochezia. GENITOURINARY: No urgency. No frequency. No dysuria. No hematuria. No obstructive symptoms. No discharge. No pain. No significant abnormal bleeding. MUSCULOSKELETAL: No musculoskeletal pain. No joint swelling. No arthritis. NEUROLOGICAL: No headache. No neck pain. No syncope. No seizures. No dizziness. PSYCHIATRIC: Not anxious. No depression. No suicidal thoughts. No homicidal thoughts. SKIN: No rash. No lesions. No wounds. ENDOCRINE: No unexplained weight loss. No weight gain. HEMATOLOGIC/LYMPHATIC: No anemia. No purpura. No petechiae. No prolonged or excessive bleeding. No palpable lymph nodes. PHYSICAL EXAMINATION: HEENT: Head normocephalic, atraumatic. Eyes: Extraocular muscles are intact. Pupils are equal, round and reactive to light and accommodation. Ears: No lesions. Nose appeared normal. Throat: No exudate or erythema. NECK: Supple. No JVP, no carotid bruit. No lymphadenopathy or thyromegaly. LUNGS: Decreased breath sounds with mild expiratory wheeze but good air entry. Clear to auscultation. Percussion note normal. Chest symmetrical. HEART: S1, S2, no S3. No murmurs. No cyanosis or clubbing. No ascites. Pulses: Dorsalis pedis and posterior tibial pulses +2 bilaterally. ABDOMEN: Soft. Nontender. Bowel sounds active. No CVA tenderness. No mass felt. EXTREMITIES: No edema. Full range of motion of all extremities, equal. NEUROLOGIC: No focal deficit. Cranial nerves II through XII are grossly intact. No headache, no double vision or headache. SKIN: Not dry. Intact. Turgor - normal. LYMPHATIC: No palpable lymph nodes/no lymphedema. MUSCULOSKELETAL: Normal joints with no swelling. Muscle tone is normal. According to the patient he is feeling 100% better then when he came in with. He doesn't have any pain. He is up about with exertional chest discomfort. ASSESSMENT: 1. Chest pain is pleuritic 2. Lipid profile is acceptable 3. The patient had chronic lung disease with history of smoking with bronchitis which seems to be resolving RECOMMENDATIONS: 1. CAD risk factor and education carried out 2. Counseling for smoking done 3. PFT will be followed The patient was seen and examined with Nurse Practitioner. CONDITION: Stable The case discussed with the attending. No more further testing requiring in the way of stress testing. We will interview the patient tomorrow. ALIDA
--- NOTE | 2018-04-07 10:26 | CONS ---
DATE OF SERVICE: 04/04/18 CONSULT FOLLOWUP SUBJECTIVE: The patient was seen and examined today. The patient's vital were stable. The patient is up and about. Hasn't smoked for past couple of days. Cardiac markers negative. EKG unchanged. Telemetry no arrhythmia, no ST-T wave change. Echo was normal yesterday with borderline RV cavity enlargement. REVIEW OF SYSTEMS: CONSTITUTIONAL: No night sweats. No fatigue, malaise, lethargy. No fever or chills. HEENT: Eyes: No visual changes. No eye pain. No eye discharge. ENT: No runny nose. No epistaxis. No sinus pain. No sore throat. No odynophagia. No ear pain. No congestion. RESPIRATORY: No cough, no congestion. No hemoptysis. CARDIOVASCULAR: No angina symptoms. No CHF symptoms. No atypical chest pain for CAD. No palpitations. No shortness of breath. GASTROINTESTINAL: No abdominal pain. No nausea or vomiting. No diarrhea or constipation. No hematemesis. No hematochezia. GENITOURINARY: No urgency. No frequency. No dysuria. No hematuria. No obstructive symptoms. No discharge. No pain. No significant abnormal bleeding. MUSCULOSKELETAL: No musculoskeletal pain. No joint swelling. No arthritis. NEUROLOGICAL: No headache. No neck pain. No syncope. No seizures. No dizziness. PSYCHIATRIC: Not anxious. No depression. No suicidal thoughts. No homicidal thoughts. SKIN: No rash. No lesions. No wounds. ENDOCRINE: No unexplained weight loss. No weight gain. HEMATOLOGIC/LYMPHATIC: No anemia. No purpura. No petechiae. No prolonged or excessive bleeding. No palpable lymph nodes. PHYSICAL EXAMINATION: HEENT: Head normocephalic, atraumatic. Eyes: Extraocular muscles are intact. Pupils are equal, round and reactive to light and accommodation. Ears: No lesions. Nose appeared normal. Throat: No exudate or erythema. NECK: Supple. No JVD, no carotid bruit. No lymphadenopathy or thyromegaly. LUNGS: Mild wheeze, expiratory but good air entry. Clear to auscultation. Percussion note normal. Chest symmetrical. HEART: S1, S2, no S3. No murmurs. No cyanosis or clubbing. No ascites. Pulses: Dorsalis pedis and posterior tibial pulses +1 to +2 bilaterally. ABDOMEN: Soft. Nontender. Bowel sounds active. No CVA tenderness. No mass felt. EXTREMITIES: No edema. Full range of motion of all extremities, equal. NEUROLOGIC: No focal deficit. Cranial nerves II through XII are grossly intact. No headache, no double vision or headache. SKIN: Not dry. Intact. Turgor - normal. LYMPHATIC: No palpable lymph nodes/no lymphedema. MUSCULOSKELETAL: Normal joints with no swelling. Muscle tone is normal. ASSESSMENT: 1. Cardiovascular status stable RECOMMENDATIONS: 1. Counseling for smoking done. 2. Blood pressure goal discussed 135/85 or less. 3. DASH diet discussed 4. Followup with primary care CONDITION: Stable. MTDD
--- NOTE | 2018-04-07 11:11 | ECHO2D ---
Date of Exam: 04/03/18 Ordering Physician: DR. JOSE CHAO Room #: 118 Reason for Echo: SOB, TACHYCARDIA M-Mode Normal Adult Results LV Dimensions Normal Adult Results AoV Opening excursions >1.6 >1.6 LVEDD-base- 3.5-5.8 4.5 Ao root dimensions 2.0-3.7 3.3 LVESD-base- 3.1-4.6 L. Atrium dimensions 1.9-3.8 3.7 Post. Wall thickness 0.8-1.1 1.1 IV septum (thickness) 0.7-1.2 1.1 Post. Wall excursion 0.72-1.3 NORMAL Septal motion NORMAL Systolic motion R. Ventricular cavity 1.5-2.0 2.5 LVEF 60% 60% Paradoxical septal wall motion NORMAL 2-D : 2-D M Mode Echocardiogram was performed using apical four chamber and left parasternal long and short axis views. Mitral, tricuspid and aortic valves appear to be normal. Contractility of the left ventricle seems to be normal, so is the cavity size. Left atrial cavity size and aortic root appear to be normal. There is no pericardial effusion. There is no thrombus noted in the left ventricular or left aortic cavity. No mitral valve prolapse noted. M-MODE: MV: NORMAL AV: NORMAL TV: NORMAL PV: CHAMBER SIZE: MILDLY ENLARGED RIGHT VENTRICLE CAVITY WALL MOTION: NORMAL PERICARDIUM: NORMAL INTERPRETATION: 1. MILDLY ENLARGED RIGHT VENTRICLE CAVITY 2. JR LEFT VENTRICULAR CONTRACTILITY 3. NORMAL VALVES MTDD
--- NOTE | 2018-04-07 13:58 | DS ---
DATE OF SERVICE: 04/04/18 (The patient was admitted close to midnight of . It should have been 04/02.) PATIENT IDENTIFICATION: The patient is a 47-year-old male woke up in the evening after sleeping, very short of breath with chest tightness. He presented to the emergency room because of the above problem and his initial vital signs showed a temperature of 99.4, pulse 95, BP 144/96, oxygen saturation 94. He is 5'7", 175 lbs. This patient was seen initially in the emergency room on 03/04/18 and was prescribed Augmentin 875 mg twice a day, Medrol Dosepak, Mucinex and Robitussin AC. HOSPITAL COURSE: The patient's problems however have continued and the patient continued taking [id number]. The patient had continued cough. Chest CT in the emergency room showed no evidence of acute cardiopulmonary disease or interval change. The CT of the chest also without contrast on 04/01/18 showed no significant findings. Labs showed moderate leukocytosis 18,520. Influenza A and B by nuclear amplification were negative. The patient was placed on Methylprednisolone Succinate 125 mg intravenously followed by every 8 hours and Levofloxacin 500 mg daily initiated in the emergency room. The patient also was given a Duoneb nebulizer four times a day and prophylactic dose of Lovenox at 40 mg daily. Antipyretic medication was discontinued. The patient on the following day, 04/02/18 was given Cardizem 30 mg twice a day because of tachycardia. 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 Diagnosed to have PTSD. He was given Inderal before to control the tachycardia and it seemed to be working according to him. The patient however is no longer on that medication. The patient was continued on the same medication. On 04/03/18, the patient is alert, feeling much better. Lungs are now clear to auscultation without any wheezing at all both anteriorly and posteriorly. Heart is audible, still slightly tachycardic but below 100. Cardiology consultation was done and the patient's Cardizem was increased by Dr. Hardy to 60 twice a day. Alpha I antitrypsin serum level was normal reported on 04/03/18, 196 mg/dl, normal is 90 to 200. TSH is slow but the free T4 is normal. The patient's WBC has declined toward normal at 12,090 on 04/02/18 and did go up to 24,990 on 07/01 and down to 22,660 on 07/02. This patient had been receiving Solu-Medrol 125 mg every 8 hours intravenously. The patient's neutrophils were increasing. The patient, at time of discharge, was alert, ambulatory with movement of all extremities, not dyspneic or tachypneic with a good color. He denies any chest pain, abdominal pain or headaches. He did recount his service when he was in [facility]. He stayed there for eight months. He does go to [facility] for counseling because of the PTSD. His lipid panel was unremarkable. Lungs were clear to auscultation on both sides. Heart is audible and regular with good tones. Abdomen soft with no remarkable tenderness. Lower extremities no tenderness in the calf muscles. Neck - no rigidity. No bruit or adenopathies in the neck. Lactic acid and procalcitonin and troponin were normal on admission. The patient had been afebrile during his hospital stay except on admission to the emergency room. DIAGNOSIS: 1. CHRONIC BRONCHITIS WITH ACUTE EXACERBATION 2. CHRONIC TOBACCO USE AND ABUSE, PERSISTENT 3. MODERATE HYPOXEMIA PROBABLY SECONDARY TO #1 4. HISTORY OF SLEEP APNEA 5. 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 HISTORY OF GERD 7. HISTORY OF DIVERTICULITIS 8. HISTORY OF ANXIETY DEPRESSION 9. PERSISTENT LEUKOCYTOSIS 10. TSH LOW, SIGNIFICANCE UNDETERMINED. THIS NEEDS TO BE REPEATED AND MAY BE FURTHER TESTING TO SEE IF INDEED THIS IS CORRECT PROGNOSIS: Guarded TIME SPENT: GREATER THAN 30 MINUTES MTDD
--- NOTE | 2018-04-08 09:21 | PN ---
DATE OF SERVICE: 04/02/18 SUBJECTIVE: The patient was alert but dyspneic and tachypneic. His pulse rate at 2:00pm with 120. He asked about the nebulizer and I did advise to more or less wait until the pulse comes down. The patient was then given Cardizem 30mg twice a day to hopefully reduce the heart rate. The patient just castro out to smoke in the afternoon and came back with more shortness of breath. The patient has wheezing in both lung escobar as well as anteriorly. He then asked for a NicoDerm Patch. I did talk to him about smoking. I did tell him that I believe that it would probably not be urena for him to resume smoking since his oxygen was dismal when he presented to the emergency room. He is only 47 years of age. I had requested an Alpha-1 antitrypsin level and I do not expect the results to be in if he will be discharged in the next few days. It will be transmitted to his provider. The patient claims that he would stop smoking and would not considering smoking again or going out to smoke. I am not certain why this patient's hypoxemia is quite severe and yet the chest findings on x-ray and CT of the chest showed minimal findings. There is no consolidation or no bronchial pneumonia. This patient has been in the service living in [place] for about 8 months. Cardiology consultation requested because of the tachycardiac although normal sinus. ALIDA
--- NOTE | 2018-04-09 09:25 | CONS ---
DATE OF CONSULTATION: 04/02/18 REASON FOR CONSULTATION: Tachycardia HISTORY OF PRESENT ILLNESS: Sick off and on for one month with short of air and cough. Completed course of amoxicillin. Mr. Machuca also reported he couldn't catch his breath and feet as if he tight band was across the chest. No arm pain. No nausea REVIEW OF SYSTEMS: CONSTITUTIONAL: No night sweats. No fatigue no more than usual, malaise, lethargy. Chills/ ? fever. HEENT: Eyes: No visual changes. No eye pain. No eye discharge. ENT: Sinus drainage. No epistaxis. No sinus pain. No sore throat. No odynophagia. No ear pain. No congestion. RESPIRATORY: Cough productive with yellow-white , no congestion. No hemoptysis. Shortness of breath. CARDIOVASCULAR: No angina symptoms. No CHF symptoms. No atypical chest pain for CAD. No palpitations. No orthopnea. GASTROINTESTINAL: No abdominal pain. No nausea or vomiting. No diarrhea or constipation. No hematemesis. No hematochezia. GENITOURINARY: No urgency. No frequency. No dysuria. No hematuria. No obstructive symptoms. No discharge. No pain. No significant abnormal bleeding. MUSCULOSKELETAL: No musculoskeletal pain. No joint swelling. NEUROLOGICAL: Frequent headache. No neck pain. No syncope. No seizures. Dizziness at times with shortness of air. PSYCHIATRIC: Anxious. Depression. No suicidal thoughts. No homicidal thoughts. SKIN: No rash. No lesions. No wounds. Warm/dry. Multiple tattoos. ENDOCRINE: No unexplained weight loss. No weight gain. HEMATOLOGIC/LYMPHATIC: No anemia. No purpura. No petechiae. No prolonged or excessive bleeding. No palpable lymph nodes. MEDICATIONS: No routine medications since May. Over the counter Excedrin Migraine ALLERGIES: No know allergies PAST MEDICAL HISTORY/PAST SURGICAL HISTORY: Sleep apnea-CPAP at home Diverticulosis Tachycardia- (treatment with Inderal then) Hypercholesterolemia GERD PTSD Migraines Endoscopy Tonsillectomy Cholecystectomy Drinks a lot of caffeine, intake varies. SOCIAL/PERSONAL/FAMILY HISTORY: The patient that is lives with two children. The patient smokes one pack per day for 13 years. Alcohol occasional use. PHYSICAL EXAMINATION: GENERAL: The patient is alert and oriented times three. VITAL SIGNS: Pulse 100, blood pressure 147/95, temperature 97.3, pulse ox 98% on 2 liters. Weight 171, BMI 27.3. HEENT: Head normocephalic, atraumatic. Eyes: Extraocular muscles are intact. Pupils are equal, round and reactive to light and accommodation. Ears: No lesions. Nose appeared normal. Throat: No exudate or erythema. NECK: Supple. No JVD, no carotid bruit. No lymphadenopathy or thyromegaly. LUNGS: Clear with decreased breath sounds. Percussion note normal. Chest symmetrical. HEART: S1, S2, no S3. No murmurs. No cyanosis or clubbing. No ascites. Pulses: Dorsalis pedis and posterior tibial pulses +1 bilaterally. ABDOMEN: Soft. Nontender. Bowel sounds active. No CVA tenderness. No mass felt. EXTREMITIES: No edema. Full range of motion of all extremities, equal. NEUROLOGIC: No focal deficit. Cranial nerves II through XII are grossly intact. No headache, no double vision or headache. SKIN: Not dry. Intact. Turgor - normal. LYMPHATIC: No palpable lymph nodes/no lymphedema. MUSCULOSKELETAL: Normal joints with no swelling. Muscle tone is normal. LABS: Chest x-ray benign granulomatous changes. Chest CT minimal dependent atelectasis in both posterior gutter regions. Heart size is normal without pericardial effusion. EKG-ST possible atrial enlargement. WBC 18.52 (04/01 admission). D-Dimer 248.78, BUN 6.2. Room Air ABG's 92% saturation, pH 7.446, pCO2 34.2, pO2 60, HCO3 23.6. ASSESSMENT: 1. Atypical chest pain for CAD 2. Acute bronchitis 3. COPD/Smoking 4. Family history of heart disease (grandparents) RECOMMENDATIONS: 1. TSH, Free T4 2. Lipids 3. Echocardiogram 4. Increase Cardizem to 60mg twice a day Thanks for referral will follow. [facility]
== END 2018-04-04 19:10 | disposition home or self-care (01) | DRG 203 ==
LOC: ED 20:05 → MEDSURG B 22:54
PROVIDERS: ADMIT General Practice; ATTEND General Practice
DX: J20.9 Acute bronchitis, unspecified (principal); R09.02 Hypoxemia; R06.00 Dyspnea, unspecified; R05 Cough; R07.9 Chest pain, unspecified; G47.30 Sleep apnea, unspecified; F43.10 Post-traumatic stress disorder, unspecified; F41.8 Other specified anxiety disorders; K21.9 Gastro-esophageal reflux disease without esophagitis; D72.829 Elevated white blood cell count, unspecified; Z72.0 Tobacco use
CPT/HCPCS: 36415; 80048; 80053; 80061; 81001; 82550; 82803; 83036; 83605; 84145; 84439; 84443; 84484; 85025; 85379; 86710; 87040; 87502; 87651; 93005; 93010; 94640; 96361; 96365; 96375; 99285

== ENCOUNTER 2018-04-10 09:03 | Outpatient (CLI) | END 2018-04-10 09:04 | disposition home or self-care (01) | LOC: LAB 09:03 | PROVIDERS: ATTEND Nurse Practitioner Family | DX: D72.829 Elevated white blood cell count, unspecified (principal) | CPT/HCPCS: 36415; 85025 ==